=== PATIENT | female | born 2005 | race African-American/Black ===

== ENCOUNTER 2023-03-13 18:43 | Emergency (ER) | payer OTHER, MEDICAID ==
[~2023-03-13] VITALS: Ht 165.1 cm; Wt 73.0 kg
[~2023-03-13 18:43] MED LIST: COUGH MEDICATION
[2023-03-13] MEDS ORDERED: KETOROLAC 30MG/ML VIAL IM ONE (19:30)
[2023-03-13] MEDS ORDERED: CYCLOBENZAPRINE 10MG TABLET PO SCH (19:30)
[2023-03-13 21:14] VITALS: BP 115/85; PULSE 89; RESP 18; TEMP 98.2; O2SAT 99
[2023-03-13] MEDS ORDERED: LIDO700A15 TP (21:18)
[2023-03-13] MEDS ORDERED: NAPR-1176 MT (21:18)
== END 2023-03-13 22:24 | disposition home or self-care (01) ==
LOC: ER 18:43
DX: S00.83XA Contusion of other part of head, initial encounter (principal); M54.50 Low back pain, unspecified; V49.49XA Driver injured in collision with other motor vehicles in traffic accident, initial encounter; Y93.89 Activity, other specified; Y92.89 Other specified places as the place of occurrence of the external cause; Y99.8 Other external cause status
CPT/HCPCS: 99283

== ENCOUNTER 2024-09-24 16:47 | Emergency (ER) | payer MEDICAID, OTHER ==
[~2024-09-24] VITALS: Ht 167.6 cm; Wt 82.0 kg
[~2024-09-24 16:47] MED LIST changes: +LIDO-53 TP; +NAPR-1176 MT
[2024-09-24 16:52] VITALS: O2SAT 97
[2024-09-24 17:07] VITALS: BP 133/79; PULSE 98; RESP 16; TEMP 36.9; O2SAT 99
== END 2024-09-24 18:27 | disposition home or self-care (01) ==
LOC: ER 16:47
DX: S01.81XD Laceration without foreign body of other part of head, subsequent encounter (principal); F19.90 Other psychoactive substance use, unspecified, uncomplicated; Z79.899 Other long term (current) drug therapy; X58.XXXD Exposure to other specified factors, subsequent encounter
CPT/HCPCS: 99281